=== PATIENT | male | born 1995 | race African-American/Black ===

== ENCOUNTER 2023-11-06 10:12 | Emergency (ER) | payer OTHER ==
[2023-11-06 10:15] VITALS: BP 124/63; PULSE 112; RESP 18; TEMP 100.6; BMI 17.7
[2023-11-06] MEDS ORDERED: RACEPINEPHRINE IH SOL 2.25% 11.25 MG/0.5 ML VIAL NEB ONE (10:45)
[2023-11-06] MEDS ORDERED: IBUPROFEN 600 MG TABLET (FP) PO ONE (10:45)
[2023-11-06] MEDS ORDERED: ALBUTEROL SO4 2.5/IPRATROPIUM 0.5 INH SOL 3 ML VIAL.NEB. NEB ONE (10:53)
[2023-11-06] MEDS ORDERED: DEXAMETHASONE 4 MG TABLET (FP) ONE (10:53)
[2023-11-06] MEDS: IBUPROFEN 600 MG TABLET (FP) PO ONE (10:55)
[2023-11-06] MEDS: DEXAMETHASONE 4 MG TABLET (FP) PO ONE (10:55)
[2023-11-06] MEDS: ALBUTEROL SO4 2.5/IPRATROPIUM 0.5 INH SOL 3 ML VIAL.NEB. NEB ONE ×2 (10:58→11:15)
[2023-11-06] MEDS: RACEPINEPHRINE IH SOL 2.25% 11.25 MG/0.5 ML VIAL IH ONE (11:25)
[2023-11-06] MEDS ORDERED: ALBUTEROL SO4 HFA INHALER IH PRN (12:02)
[2023-11-06] MEDS ORDERED: AZITHROMYCIN 500 MG TABLET ONE (12:20)
[2023-11-06] MEDS ORDERED: ALBUTEROL SO4 HFA INHALER IH ONE (12:20)
[2023-11-06] MEDS: AZITHROMYCIN 250 MG TABLET PO ONE (12:24)
== END 2023-11-06 12:36 | disposition home or self-care (01) ==
LOC: FER 10:12
PROC: 3E0F7GC Introduction of Other Therapeutic Substance into Respiratory Tract, Via Natural or Artificial Opening (ICD-10-PCS; principal; 2023-11-06)
DX: R05.9 Cough, unspecified (principal); R50.9 Fever, unspecified; R00.0 Tachycardia, unspecified; J18.9 Pneumonia, unspecified organism; J45.909 Unspecified asthma, uncomplicated; J10.1 Influenza due to other identified influenza virus with other respiratory manifestations; Z20.822 Contact with and (suspected) exposure to COVID-19
CPT/HCPCS: 0241U-QW; 71046-TC-FY; 87633; 99284-25